=== PATIENT | female | born 1980 | race Two or more races ===

== ENCOUNTER 2018-11-18 01:50 | Emergency (ER) | payer SELFPAY ==
[2018-11-18 01:59] VITALS: BP 92/53; PULSE 79; RESP 18; TEMP 98.5; O2SAT 96
[2018-11-18] MEDS ORDERED: Sodium Chloride 0.9% 1,000 ML IV STA (02:04)
[2018-11-18 04:50] LABS: BASO % 0.3 % (0.0-2.0); EOS # 0.1 K/uL (0.0-0.7); LYMPH # 1.4 K/uL (1.0-4.3); LYMPH % 25.4 % (20.0-40.0); MEAN CELL VOLUME 88.7 fl (81.0-99.0); MEAN CORPUSCULAR HEMOGLOBIN 28.8 pg (27.0-31.0); MEAN CORPUSCULAR HGB CONC 32.5 g/dL (33.0-37.0); MEAN PLATELET VOLUME 8.5 fl (7.2-11.7); MONO # 0.4 K/uL (0.0-0.8); MONO % 6.7 % (0.0-10.0); NEUT # 3.7 K/uL (1.8-7.0); NEUT % 66.6 % (50.0-75.0); NRBC % 0.1 % (0.0-0.0); RBC 4.52 Mil/uL (3.80-5.20); RED CELL DISTRIBUTION WIDTH 13.1 % (11.5-14.5); WHITE BLOOD COUNT 5.5 K/uL (4.8-10.8)
[2018-11-18 04:59] LABS: ALB/GLOB RATIO 1.4 (1.0-2.1); ALBUMIN 4.8 g/dL (3.5-5.0); ALT/SGPT 43 U/L (9-52); AST/SGOT 32 U/L (14-36); BLOOD UREA NITROGEN 11 mg/dl (7-17); CALCIUM 9.1 mg/dL (8.4-10.2); GFR NON-AFRICAN AMERICAN > 60
--- NOTE | 2018-11-18 05:15 | ED PDOC ---
HPI: Psych/Substance Abuse Time Seen by Provider: 11/18/18 02:03 Chief Complaint (Nursing): Alcohol Ingestion Chief Complaint (Provider): Alcohol Ingestion History Per: Patient History/Exam Limitations: no limitations Onset/Duration Of Symptoms: Hrs Modifying Factor(s): Alcohol Additional Complaint(s): 38 year old female presents to the ED for alcohol intoxication onset tonight. When patient was brought into the ED, she was not responsive. She became aroused in the ED. Patient reports initially, she had nausea and vomited. Otherwise, patient denies fever, chest pain, cough, shortness of breath or abdominal pain. PMD: unknown Past Medical History Reviewed: Historical Data, Nursing Documentation, Vital Signs Vital Signs: Last Vital Signs Temp 98.5 F 11/18/18 01:56 Pulse 79 11/18/18 01:56 Resp 18 11/18/18 01:56 BP 92/53 L 11/18/18 01:56 Pulse Ox 96 11/18/18 01:56 Primary Care Provider: FAMILY PROVIDER,NO - Medical History PMH: No Chronic Diseases - Family History Family History: States: Unknown Family Hx - Allergies Allergies/Adverse Reactions: Allergies Allergy/AdvReac Type Severity Reaction Status Date / Time Unobtainable Allergy Verified 11/18/18 01:56 Review of Systems ROS Statement: Except As Marked, All Systems Reviewed And Found Negative Constitutional: Negative for: Fever Cardiovascular: Negative for: Chest Pain Respiratory: Negative for: Cough, Shortness of Breath Gastrointestinal: Positive for: Nausea, Vomiting. Negative for: Abdominal Pain Physical Exam - Reviewed Nursing Documentation Reviewed: Yes Vital Signs Reviewed: Yes - Physical Exam Appears: Positive for: Well, Non-toxic, No Acute Distress Head Exam: Positive for: ATRAUMATIC, NORMAL INSPECTION, NORMOCEPHALIC Skin: Positive for: Normal Color, Warm, Dry Eye Exam: Positive for: EOMI, Normal appearance, PERRL ENT: Positive for: Normal ENT Inspection Neck: Positive for: Normal, Painless ROM, Supple. Negative for: Decreased ROM Cardiovascular/Chest: Positive for: Regular Rate, Rhythm. Negative for: Murmur Respiratory: Positive for: Normal Breath Sounds. Negative for: Decreased Breath Sounds, Respiratory Distress Gastrointestinal/Abdominal: Positive for: Normal Exam, Soft. Negative for: Tenderness Back: Positive for: Normal Inspection Extremity: Positive for: Normal ROM. Negative for: Tenderness, Pedal Edema, Deformity Neurological/Psych: Positive for: Awake, Alert, Normal Tone, Oriented (x3), Other (slurred speech ) - Laboratory Results Result Diagrams: 11/18/18 04:35 11/18/18 04:35 Lab Results: Total Bilirubin 0.5 mg/dl (0.2-1.3) 11/18/18 04:35 AST 32 U/L (14-36) 11/18/18 04:35 ALT 43 U/L (9-52) 11/18/18 04:35 Alkaline Phosphatase 49 U/L (38-126) 11/18/18 04:35 Total Protein 8.3 G/DL (6.3-8.2) H 11/18/18 04:35 Albumin 4.8 g/dL (3.5-5.0) 11/18/18 04:35 Globulin 3.5 gm/dL (2.2-3.9) 11/18/18 04:35 Albumin/Globulin Ratio 1.4 (1.0-2.1) 11/18/18 04:35 - ECG O2 Sat by Pulse Oximetry: 96 (RA) Pulse Ox Interpretation: Normal Medical Decision Making Medical Decision Making: Time: 0203 Impression: 38yo female with alcohol intoxication Plan: Alcohol serum CMP Drug screen Urine Ed urine dipstick CBC w/ differential Glucose, POC Normal saline 1000 mls/hr Zofran inj Heplock insertion Accucheck UA Reevaluation 0511 Labs reviewed show no clinically significant abnormalities except for elevatedalcohol level Patient is clinically sober for discharge Scribe Attestation: Documented by Genesis Pittman, acting as a scribe for Marco A Bill MD Provider Scribe Attestation: All medical record entries made by the Scribe were at my direction and personally dictated by me. I have reviewed the chart and agree that the record accurately reflects my personal performance of the history, physical exam, medical decision making, and the department course for this patient. I have also personally directed, reviewed, and agree with the discharge instructions and disposition. Disposition - Clinical Impression Clinical Impression: Alcohol abuse with intoxication - Patient ED Disposition Is Patient to be Admitted: No - Disposition Disposition: Routine/Home Disposition Time: 05:11 Condition: STABLE Instructions: Alcohol Use - When Is Drinking a Problem? Forms: [facility] (Tajik) Print Language: GHANAIAN
[2018-11-18 06:33] LABS: SQUAMOUS EPITHIAL < 1 /hpf (0-5); URINE BACTERIA OCC (<OCC)
[2018-11-18 06:37] LABS: BARBITURATES, UR NEGATIVE (NEGATIVE); BENZODIAZEPINES, UR NEGATIVE (NEGATIVE); OPIATES, UR NEGATIVE (NEGATIVE); PHENCYCLIDINE, UR NEGATIVE (NEGATIVE)
[2018-11-18 06:47] LABS: URINE BILIRUBIN NEGATIVE (NEGATIVE); URINE BLOOD NEGATIVE (NEGATIVE); URINE CLARITY CLEAR (Clear); URINE COLOR STRAW (YELLOW); URINE GLUCOSE (UA) NEG (NEGATIVE); URINE LEUKOCYTE ESTERASE NEG Leu/uL (Negative); URINE PROTEIN NEGATIVE (NEGATIVE); URINE UROBILINOGEN 0.2-1.0 mg/dL (0.2-1.0)
== END 2018-11-18 07:32 | disposition home or self-care (01) ==
LOC: H.ER 01:50
DX: F10.129 Alcohol abuse with intoxication, unspecified (principal)
CPT/HCPCS: 80053; 81003; 82948; 85025; 96360; 99282; G0480; J2405; J7030